=== PATIENT | male | born 1970 | race Caucasian/White ===

== ENCOUNTER 2019-05-25 00:27 | Emergency (ER) | payer OTHER, SELFPAY ==
--- NOTE | 2019-05-25 00:28 | DI.RAD.S_ITS ---
PROCEDURE: XR CHEST 1V INDICATIONS: chest pain TECHNIQUE: One view of the chest was acquired. COMPARISON: [facility], , XR CXR 1V, 02/02/2006, 11:17. FINDINGS: Surgical changes and devices: None. Lungs and pleura: Lungs are clear. No pleural effusions or pneumothorax. Mediastinum: Mediastinal contours appear normal. Heart size is normal. Bones and chest wall: No suspicious bony lesions. Overlying soft tissues appear unremarkable. IMPRESSION: Stable chest. No acute cardiopulmonary process is evident. Note: The preliminary ED physician interpretation and the final report are concordant. Dictated by: Alexander Green M.D. on 05/25/2019 at 8:07 Approved by: Alexander Green M.D. on 05/25/2019 at 8:09
[2019-05-25 00:33] VITALS: BP 150/100; PULSE 93; RESP 12; TEMP 37; O2SAT 100; BMI 32.1
[2019-05-25 00:38] LABS: Add Manual Diff / Slide Review NO; Basophils Absolute Auto 0 /uL (0-100); Basophils Percent Auto 0.2 % (0-2); Eosinophils Absolute Auto 200 /uL (0-450); Eosinophils Percent Auto 2.1 % (2-4); Hematocrit 43.1 % (41-53); Hemoglobin 15.2 g/dL (13.5-17.5); Lymphocytes Absolute Auto 2300 /uL (1100-4500); Lymphocytes Percent Auto 21.7 % (25-40); Mean Corpuscular HGB Conc 35.3 % (30-36); Mean Corpuscular Hemoglobin 31.5 PG (26-34); Mean Corpuscular Volume 89.4 fL (80-100); Monocytes Absolute Auto 700 /uL (0-900); Monocytes Percent Auto 6.3 % (3-14); Neutrophils Absolute Auto 7400 /uL (1500-7000); Neutrophils Percent Auto 69.7 % (50-75); Platelet Count 290 X10^3/uL (150-400); Red Blood Cell Count 4.83 X10^6/uL (4.5-5.9); White Blood Cell Count 10.7 X10^3/uL (4.5-11.0)
--- NOTE | 2019-05-25 00:40 | ED_ITS ---
HPI - Chest Pain General Chief Complaint: Chest Pain Stated Complaint: Chest Pain Time Seen by Provider: 05/25/19 00:31 Source: patient Mode of arrival: EMS Limitations: no limitations History of Present Illness HPI narrative: Patient is a 48-year-old male. History of hypertension. Here for evaluation of diaphoresis, not feeling well, fullness in his throat. Patient states the symptoms started just prior to arrival. He was at work however he was sitting in a-chair when the symptoms happened. Has never had a nything like this in the past. States he started not feel very well. Does have a blood pressure cuff at work and took his blood pressure and it was ?elevated ?he denies any chest pain at the time. Did receive aspirin prior to arrival by EMS. Upon arrival here to emergency department states he feels back to normal again. Related Data Home Medications Medication Instructions Recorded Confirmed lisinopril 20 mg PO QDAY #0 02/22/12 Allergies Allergy/AdvReac Type Severity Reaction Status Date / Time No Known Drug Allergies Allergy Verified 05/25/19 00:33 Review of Systems Constitutional Constitutional: Reports chills and Denies headache(s) ENT Ears, Nose, Mouth, and Throat: Denies headache(s) Cardiovascular Cardiovascular: Denies chest pain, Reports diaphoresis, Reports rapid heart rate, Denies palpitations and Reports dyspnea Respiratory Respiratory: Reports dyspnea Gastrointestinal Gastrointestinal: Denies abdominal pain Integumentary/Breasts Skin/Breast: Denies lesions and Denies rash Neurologic Neurologic: Denies behavioral changes and Denies headache(s) Psychiatric Psychiatric: Denies behavioral changes Endocrine Endocrine: Denies palpitations Hematologic/Lymphatic Hematologic/Lymphatic: Denies easy bleeding and Denies easy bruising Allergic/Immunologic Allergic/Immunologic: Denies urticaria [facility] Medical History Hypertension (Acute) Social History Smoking Status: Unknown if ever smoked Social History Smoking Status: Unknown if ever smoked Exam Initial Vital Signs Initial Vital Signs: Vital Signs Temperature 98.6 F 05/25/19 00:33 Pulse Rate 93 H 05/25/19 00:33 Respiratory Rate 12 05/25/19 00:33 Blood Pressure 150/100 H 05/25/19 00:33 Pulse Oximetry 100 05/25/19 00:33 Const General: cooperative, well developed and well groomed Orientation: alert and awake HENMT Head: normal to inspection and normocephalic Resp Effort & Inspection: normal respiratory effort Auscultation: clear to auscultation bilaterally Cardio Rate: regular rate Rhythm: regular rhythm Pulses: radial pulses present GI Inspection: non-distended Palpation: soft, No firm and No tender Skin Lesions: no lesions Rashes: no rashes Neuro General: alert, awake and oriented x3 Cognition: normal cognition Speech: speech normal Extrem General: normal to inspection and capillary refill normal Psych Appearance: grossly normal and well kempt Scores HEART Score Heart Score history: Slightly Suspicious Heart Score EKG: Normal Heart Score Age: 45-64 years old Heart Score risk factors: 1-2 risk factors Heart Score troponin: < or = to normal limit Heart Score Total: 2 Course Orders Ordered: ED Orders 05/25/19 00:20 Complete Blood Count AUTO DIFF Stat Comprehensive Metabolic Panel Stat Lipase Stat Partial Thromboplastin Time Stat Prothrombin Time INR Stat Troponin & CK Cardiac Panel Stat 05/25/19 00:28 XR chest 1V Stat 05/25/19 00:30 EKG-12 Lead Stat 05/25/19 02:22 Troponin I Stat Vital Signs Vital signs: Vital Signs - 8 hr 05/25/19 00:33 05/25/19 02:00 05/25/19 02:28 Temperature 98.6 F Pulse Rate 93 H 73 71 Respiratory Rate 12 21 14 Blood Pressure 150/100 H Blood Pressure [Right Arm] 128/79 128/79 Pulse Oximetry 100 97 98 MDM - Chest Pain Lab Data Attestation: I reviewed the patient's lab results. Result diagrams: 05/25/19 00:20 05/25/19 00:20 Labs: Lab Results 05/25/19 05/25/19 05/25/19 Range/Units 00:20 00:20 00:20 WBC 10.7 (4.5-11.0) X10^3/uL RBC 4.83 (4.5-5.9) X10^6/uL Hgb 15.2 (13.5-17.5) g/dL Hct 43.1 (41-53) % MCV 89.4 (80-100) fL MCH 31.5 (26-34) PG MCHC 35.3 (30-36) % RDW 12.0 (11.6-14.8) % Plt Count 290 (150-400) X10^3/uL Neut % (Auto) 69.7 (50-75) % Lymph % (Auto) 21.7 L (25-40) % [place] % (Auto) 6.3 (3-14) % Eos % (Auto) 2.1 (2-4) % Baso % (Auto) 0.2 (0-2) % Neut # (Auto) 7400 H (6659-9450) /uL Lymph # (Auto) 2300 (5036-7366) /uL [place] # (Auto) 700 (0-900) /uL Eos # (Auto) 200 (0-450) /uL Baso # (Auto) 0 (0-100) /uL PT 11.1 (10.1-12.7) SECONDS INR 1.0 (0.9-1.3) APTT 28 (26.4-36.2) SECONDS Sodium 137 (137-145) mmol/L Potassium 3.9 (3.4-5.1) mmol/L Chloride 102 (98-107) mmol/L Carbon Dioxide 22 (22-32) mmol/L BUN 19 (9-20) mg/dL Creatinine 1.10 (0.66-1.25) mg/dL Estimated GFR > 60.0 (>60) mL/min BUN/Creatinine Ratio 17.3 (6-22) Glucose 146 H (70-100) mg/dL Calcium 9.5 (8.4-10.2) mg/dL Total Bilirubin 1.2 (0.2-1.3) mg/dL AST 43 (17-59) IU/L ALT 42 (21-72) IU/L Alkaline Phosphatase 76 (38-126) U/L Total Creatine Kinase 469 H (55-170) U/L CK-MB (CK-2) 3.86 H (<2.37) ng/mL CK-MB (CK-2) Rel Index 0.8 L (1.5-5.0) % Troponin I < 0.012 (0.01-0.034) ng/mL Total Protein 8.0 (6.3-8.2) g/dL Albumin 4.7 (3.5-5.0) g/dL Globulin 3.3 (1.7-4.1) g/dL Albumin/Globulin Ratio 1.4 (1.0-2.8) Lipase 145 (23-300) U/L 05/25/19 Range/Units 02:22 WBC (4.5-11.0) X10^3/uL RBC (4.5-5.9) X10^6/uL Hgb (13.5-17.5) g/dL Hct (41-53) % MCV (80-100) fL MCH (26-34) PG MCHC (30-36) % RDW (11.6-14.8) % Plt Count (150-400) X10^3/uL Neut % (Auto) (50-75) % Lymph % (Auto) (25-40) % [place] % (Auto) (3-14) % Eos % (Auto) (2-4) % Baso % (Auto) (0-2) % Neut # (Auto) (2155-3650) /uL Lymph # (Auto) (1657-6097) /uL [place] # (Auto) (0-900) /uL Eos # (Auto) (0-450) /uL Baso # (Auto) (0-100) /uL PT (10.1-12.7) SECONDS INR (0.9-1.3) APTT (26.4-36.2) SECONDS Sodium (137-145) mmol/L Potassium (3.4-5.1) mmol/L Chloride (98-107) mmol/L Carbon Dioxide (22-32) mmol/L BUN (9-20) mg/dL Creatinine (0.66-1.25) mg/dL Estimated GFR (>60) mL/min BUN/Creatinine Ratio (6-22) Glucose (70-100) mg/dL Calcium (8.4-10.2) mg/dL Total Bilirubin (0.2-1.3) mg/dL AST (17-59) IU/L ALT (21-72) IU/L Alkaline Phosphatase (38-126) U/L Total Creatine Kinase (55-170) U/L CK-MB (CK-2) (<2.37) ng/mL CK-MB (CK-2) Rel Index (1.5-5.0) % Troponin I < 0.012 (0.01-0.034) ng/mL Total Protein (6.3-8.2) g/dL Albumin (3.5-5.0) g/dL Globulin (1.7-4.1) g/dL Albumin/Globulin Ratio (1.0-2.8) Lipase (23-300) U/L Imaging Data Chest x-ray: Attestation: I personally reviewed and interpreted this imaging study as follows: My impression: No acute pathology ECG Data Attestation: I personally reviewed and interpreted this ECG as follows: Prior ECG tracings: not available for review Interpretation: Sinus rhythm Ventricular rate 84 Normal axis Normal QRS Normal QTC No ST T wave changes MDM Narrative Medical decision making narrative: Patient has had 2-troponins. EKG is unremarkable. Has a heart score of 2. Has been asymptomatic since arriving here in the emergency department. Did discuss the symptoms with him. Informed him that he should follow up with his primary doctor to discuss a stress test. We discussed return precautions and follow-up instructions. He expressed un derstanding and agreement with plan. Discharge Plan Departure Patient Disposition: Home Clinical Impression: Atypical chest pain Instructions: DI for Atypical Chest Pain Activity Restrictions/Additional Instructions: The recommend you continue all of your medications as directed. On Monday c ontact your primary provider to discuss the indications for a stress test. Return to the emergency department for any new or worsening symptoms Prescriptions: No Action lisinopril 20 MG tablet 20 mg PO QDAY Qty: 0 RF: 0 Referrals: Jhonathan Roque MD [Primary Care Provider] - Stand Alone Forms: Work Release Note
[2019-05-25 00:44] LABS: Prothrombin Time 11.1 SECONDS (10.1-12.7)
[2019-05-25 00:47] LABS: PTT Partial Thromboplastin Tim 28 SECONDS (26.4-36.2)
[2019-05-25 00:50] LABS: Alanine Aminotransferase 42 IU/L (21-72); Albumin 4.7 g/dL (3.5-5.0); Albumin Globulin Ratio 1.4 (1.0-2.8); Alkaline Phosphatase 76 U/L (38-126); Aspartate Aminotransferase 43 IU/L (17-59); BUN Creatinine Ratio 17.3 (6-22); Bilirubin Total 1.2 mg/dL (0.2-1.3); Blood Urea Nitrogen 19 mg/dL (9-20); Calcium 9.5 mg/dL (8.4-10.2); Carbon Dioxide 22 mmol/L (22-32); Chloride 102 mmol/L (98-107); Creatine Kinase 469 U/L (55-170); Estimated Glomerular Filt Rate > 60.0 mL/min (>60); Globulin 3.3 g/dL (1.7-4.1); Glucose 146 mg/dL (70-100); Lipase 145 U/L (23-300); Sodium 137 mmol/L (137-145)
[2019-05-25 00:54] LABS: HEMOLYSIS 57 (0-50)
[2019-05-25 00:56] LABS: Potassium 3.9 mmol/L (3.4-5.1)
[2019-05-25 01:01] LABS: Troponin I < 0.012 ng/mL (0.01-0.034)
[2019-05-25 01:05] LABS: CKMB % Relative Index 0.8 % (1.5-5.0); Creatine Kinase MB 3.86 ng/mL (<2.37)
[2019-05-25 02:00] VITALS: BP 128/79; PULSE 73; RESP 21; O2SAT 97
[2019-05-25 02:28] VITALS: BP 128/79; PULSE 71; RESP 14; O2SAT 98
[2019-05-25 02:52] LABS: Troponin I < 0.012 ng/mL (0.01-0.034)
[2019-05-25 03:10] VITALS: BP 147/94; PULSE 73; RESP 21; O2SAT 99
== END 2019-05-25 03:12 | disposition home or self-care (01) ==
PROVIDERS: Emergency Provider Emergency Medicine; PCP Family Medicine
DX: R07.89 Other chest pain (principal)
CPT/HCPCS: 36415; 71045; 80053; 82550; 82553; 83690; 84484; 85025; 85610; 85730; 93005; 99283; 99285